=== PATIENT | female | born 1930 | race Caucasian/White ===

== ENCOUNTER 2017-08-23 13:54 | Day surgery (SDC) | payer MEDICARE, OTHER ==
[2017-08-23 14:10] VITALS: BP 159/53
== END 2017-08-23 13:55 | disposition home or self-care (01) ==
LOC: AMB 13:54
PROVIDERS: ATTEND Ophthalmology
PROC: 085K3ZZ Destruction of Left Lens, Percutaneous Approach (ICD-10-PCS; principal; 2017-08-23)
DX: H26.492 Other secondary cataract, left eye (principal); Z68.26 Body mass index [BMI] 26.0-26.9, adult